=== PATIENT | female | born 1970 | race Caucasian/White ===

== ENCOUNTER 2023-10-21 17:13 | Emergency (ER) | payer OTHER ==
[~2023-10-21] VITALS: Ht 157.5 cm; Wt 59.0 kg
[2023-10-21 17:24] VITALS: O2SAT 99
== END 2023-10-21 18:16 | disposition home or self-care (01) ==
LOC: ER 17:16
DX: S82.62XA Displaced fracture of lateral malleolus of left fibula, initial encounter for closed fracture (principal); F41.9 Anxiety disorder, unspecified; Z88.2 Allergy status to sulfonamides; X50.1XXA Overexertion from prolonged static or awkward postures, initial encounter; Y93.89 Activity, other specified; Y92.89 Other specified places as the place of occurrence of the external cause; Y99.8 Other external cause status
CPT/HCPCS: 73610; A4606; A4663

== ENCOUNTER 2024-04-22 09:11 | Emergency (ER) | payer OTHER ==
[~2024-04-22] VITALS: Ht 157.5 cm; Wt 59.0 kg
[2024-04-22 09:45] LABS: BASOPHILS # (AUTO) 0.2 K/UL (0.0-0.2); BASOPHILS % (AUTO) 2.4 % (0.0-2.0); EOSINOPHILS % (AUTO) 0.7 % (0.0-7.0); HEMATOCRIT 36.9 % (31.2-41.9); HEMOGLOBIN 12.4 g/dL (10.9-14.3); LYMPHOCYTES # (AUTO) 1.4 K/uL (0.8-4.8); LYMPHOCYTES % (AUTO) 21.5 % (20.5-51.5); MEAN CORPUSCULAR HEMOGLOBIN 28.4 uug (24.7-32.8); MEAN CORPUSCULAR HGB CONC 33 g/dL (32.3-35.6); MONOCYTES # (AUTO) 0.2 K/uL (0.1-1.30); MONOCYTES % (AUTO) 3.7 % (0.0-11.0); NEUTROPHILS # (AUTO) 4.7 K/uL (1.8-8.9); NEUTROPHILS % (AUTO) 71.7 % (38.5-71.5); PLATELET COUNT (AUTO) 163 K/uL (179-408); RED BLOOD CELL COUNT(AUTO) 4.35 MIL/uL (3.63-4.92); RED CELL DISTRIBUTION WIDTH 13.2 % (12.3-17.7); WHITE BLOOD COUNT (AUTO) 6.5 K/uL (3.8-11.8)
[2024-04-22] MEDS ORDERED: METOCLOPRAMIDE HCL 10 MG/2 ML VIAL ONE (09:50)
[2024-04-22] MEDS ORDERED: KETOROLAC TROMETHAMINE 15 MG INJ ONE (09:50)
[2024-04-22 09:52] LABS: DIFFERENTIAL COMMENT 1
[2024-04-22 09:56] LABS: CALCIUM 9.5 mg/dL (8.5-10.1); CARBON DIOXIDE 28 mmol/L (21-32); CHLORIDE 102 mmol/L (98-107); CREATININE 0.7 mg/dL (0.6-1.3); GLUCOSE 101 mg/dL (74-106); POTASSIUM 3.8 mmol/L (3.5-5.1); SODIUM SERUM 138 mmol/L (136-145); UREA NITROGEN, BLOOD 14 mg/dL (7-18)
[2024-04-22] MEDS: KETOROLAC TROMETHAMINE 15 MG INJ IVP ONE (09:58)
[2024-04-22] MEDS: METOCLOPRAMIDE HCL 10 MG/2 ML VIAL IV ONE (09:58)
[2024-04-22 09:59] LABS: *BILIRUBIN,URIN NEGATIVE (NEGATIVE); *COLOR,URINE Orange (YELLOW); *KETONES,URINE TRACE (NEGATIVE); *PROTEIN,URINE 1+ (NEGATIVE); LEUKOCYTE ESTERASE ,URINE TRACE (NEGATIVE); NITRITE, URINE POSITIVE (NEGATIVE); PH,URINE 5.5 (5.0-8.0); UGLUCOSE TRACE (NEGATIVE)
[2024-04-22 10:05] LABS: ALANINE AMINOTRANSFERASE 28 U/L (14-59); ALBUMIN 3.9 g/dL (3.4-5.0); ALKALINE PHOSPHATASE 85 U/L (50-136); ASPARTATE AMINOTRANSFERASE 10 U/L (15-37); BILIRUBIN,DIRECT 0.2 mg/dL (0.0-0.2); BILIRUBIN,TOTAL 0.6 mg/dL (0.2-1.0); LIPASE 34 U/L (16-77); TOTAL PROTEIN, SERUM 8.1 g/dL (6.4-8.2)
[2024-04-22 10:05] LABS: *BLOOD, URINE TRACE (NEGATIVE); *CLARITY,URINE SLIGHTLY CLOUDY (CLEAR)
[2024-04-22 10:12] LABS: BACTERIA,URINE FEW /HPF (NONE SEEN); RBC,URINE 0-3 /HPF (0-3); SQUAMOUS EPITHELIAL CELL,UR MODERATE /HPF (NONE SEEN)
[2024-04-22] MEDS ORDERED: AMOX-430 PO (11:02)
[2024-04-22 11:08] VITALS: BP 121/84; TEMP 98.3; O2SAT 98
== END 2024-04-22 11:11 | disposition home or self-care (01) ==
LOC: ER 09:11
DX: K57.32 Diverticulitis of large intestine without perforation or abscess without bleeding (principal); Z79.899 Other long term (current) drug therapy; Z88.2 Allergy status to sulfonamides
CPT/HCPCS: 99285; 74176; 96374; 71045; 96375; 80076; 80048; 81001; 83690; 85025; 85730; 84484; 36415; 93005 ×2; 87086; J1885; J2765; A4606; A4663

== ENCOUNTER 2025-08-21 09:05 | Emergency (ER) | payer OTHER ==
[~2025-08-21] VITALS: Ht 157.5 cm; Wt 57.6 kg
[~2025-08-21 09:05] MED LIST: AMOX-430 PO
[2025-08-21 10:45] LABS: PLATELET COUNT (AUTO) 156 K/uL (179-408); RED BLOOD CELL COUNT(AUTO) 4.28 MIL/uL (3.63-4.92); RED CELL DISTRIBUTION WIDTH 13.4 % (12.3-17.7); WHITE BLOOD COUNT (AUTO) 6.2 K/uL (3.8-11.8)
[2025-08-21] MEDS ORDERED: ONDANSETRON 4 MG/2 ML VIAL ONE (10:47)
[2025-08-21] MEDS ORDERED: HYDROMORPHONE 1 MG/1 ML DISP.SYRIN ONE (10:47)
[2025-08-21 10:54] LABS: CREATININE 0.5 mg/dL (0.6-1.3); SODIUM SERUM 142.0 mmol/L (136-145); UREA NITROGEN, BLOOD 11.0 mg/dL (7-18)
[2025-08-21 11:00] LABS: ASPARTATE AMINOTRANSFERASE 16.0 U/L (15-37); TOTAL PROTEIN, SERUM 8.0 g/dL (6.4-8.2)
[2025-08-21] MEDS: ONDANSETRON 4 MG/2 ML VIAL IV ONE (11:01)
[2025-08-21] MEDS: HYDROMORPHONE 1 MG/1 ML DISP.SYRIN IV ONE (11:02)
[2025-08-21] MEDS: IV NORMAL SALINE 1000 ML BAG IV ONE (11:02)
[2025-08-21 11:09] LABS: *BILIRUBIN,URIN NEGATIVE (NEGATIVE); *BLOOD, URINE 1+ (NEGATIVE); *CLARITY,URINE CLEAR (CLEAR); *COLOR,URINE YELLOW (YELLOW); *KETONES,URINE NEGATIVE (NEGATIVE); *PROTEIN,URINE NEGATIVE (NEGATIVE); *UROBILINOGEN,URINE 0.2 E.U./dl (NORMAL); LEUKOCYTE ESTERASE ,URINE TRACE (NEGATIVE); NITRITE, URINE NEGATIVE (NEGATIVE); UGLUCOSE NEGATIVE (NEGATIVE)
[2025-08-21 11:36] LABS: *URINE HCG, QUAL NEGATIVE (NEGATIVE)
[2025-08-21 12:12] LABS: SQUAMOUS EPITHELIAL CELL,UR MODERATE /HPF (NONE SEEN)
[2025-08-21 13:35] VITALS: BP 111/74
[2025-08-21] MEDS ORDERED: OXYC-128 PO (14:42)
[2025-08-21] MEDS ORDERED: AMOX-430 PO (14:42)
[2025-08-21] MEDS ORDERED: PIPERACILLIN/TAZO 4.5 GM VIAL IV ONE (14:44)
[2025-08-21] MEDS: PIPERACILLIN SODIUM/TAZOBACTAM 4.5 G in IV DEXTROSE 5% 50 ML IV SCH (14:51)
[2025-08-21 15:30] VITALS: BP 118/77; TEMP 98; O2SAT 98
== END 2025-08-21 15:34 | disposition home or self-care (01) ==
LOC: ER 09:16
DX: K57.32 Diverticulitis of large intestine without perforation or abscess without bleeding (principal); K52.9 Noninfective gastroenteritis and colitis, unspecified; Z88.2 Allergy status to sulfonamides
CPT/HCPCS: 99285; 74176; 96365; 96375; 96361; 80076; 80048; 81001; 84703; 85025; 36415; 83605; J2405; J2543; J1171; J7040; A4606; A4663